=== PATIENT | female | born 1995 | race Caucasian/White ===

== ENCOUNTER → 2020-04-16 | Outpatient (CLI) | payer BC ==
[~2020-04-16] MED LIST: CALCIUM600 MG PO; DOCUSATE SODIU100 MG PO; HYDROCODON-ACE1 EAC4 PO; IBUPROFEN600 MG PO; PRENATABS RX T1 EACH PO
[2020-04-16 15:18] LABS: HEMOGLOBIN 12.3 gm/dl (12.3-15.3); RED BLOOD COUNT 3.93 M/UL (4.00-5.10); WHITE BLOOD COUNT 8.9 K/UL (4.5-11.0)
== END ==
LOC: GENOP 14:03
PROVIDERS: Obstetrics & Gynecology
DX: Z01.818 Encounter for other preprocedural examination (principal)
CPT/HCPCS: 85025

== ENCOUNTER 2020-04-17 05:35 | Inpatient (IN) | payer BC ==
[~2020-04-17] VITALS: Ht 149.9 cm; Wt 55.3 kg
[~2020-04-17 05:35] MED LIST changes: -DOCUSATE SODIU100 MG PO; -HYDROCODON-ACE1 EAC4 PO; -IBUPROFEN600 MG PO
[2020-04-17] MEDS ORDERED: IBUPROFEN600 MG PO (11:29)
[2020-04-17] MEDS ORDERED: HYDROCODON-ACE1 EAC4 PO (11:29)
[2020-04-17] MEDS ORDERED: DOCUSATE SODIU100 MG PO (11:29)
[2020-04-18 06:44] LABS: HEMOGLOBIN 10.5 gm/dl (12.3-15.3)
== END 2020-04-18 13:26 | disposition home or self-care (01) | DRG 788 ==
LOC: GENOP 05:35 → OB 09:30
PROVIDERS: ADMIT Obstetrics & Gynecology
PROC: 3E0234Z Introduction of Serum, Toxoid and Vaccine into Muscle, Percutaneous Approach (ICD-10-PCS; 2020-04-17)
PROC: 10D00Z1 Extraction of Products of Conception, Low, Open Approach (ICD-10-PCS; principal; 2020-04-17 10:34)
DX: O34.211 Maternal care for low transverse scar from previous cesarean delivery (principal); N85.8 Other specified noninflammatory disorders of uterus; Z3A.37 37 weeks gestation of pregnancy; Z37.0 Single live birth; O99.824 Streptococcus B carrier state complicating childbirth; Z23 Encounter for immunization; O36.5930 Maternal care for other known or suspected poor fetal growth, third trimester, not applicable or unspecified
CPT/HCPCS: 36415; 81001; 82800; 83518; 85014; 85018; 85025; 90471; 90715; C9113; J0690; J1885; J2274; J2300; J2405; J2590; J3010; J7120; U0002; U0003

== ENCOUNTER → 2020-04-28 | Outpatient (CLI) | payer BC ==
[~2020-04-28] MED LIST changes: +DOCUSATE SODIU100 MG PO; +HYDROCODON-ACE1 EAC4 PO; +IBUPROFEN600 MG PO
== END ==
LOC: EXRD 11:14
DX: R59.0 Localized enlarged lymph nodes (principal)
CPT/HCPCS: 76881